=== PATIENT | female | born 1980 | race Caucasian/White ===

== ENCOUNTER → 2018-04-22 | Outpatient (CLI) | payer BC | LOC: LAB 14:08 → LAB SHORT 14:08 | DX: N39.0 Urinary tract infection, site not specified (principal); R30.0 Dysuria | CPT/HCPCS: 87086 ==

== ENCOUNTER → 2025-08-16 | Outpatient (CLI) | payer BC ==
[2025-08-19 16:09] LABS: CORTISOL,U FREE - RATIO TO CRT 14.24 ug/g CRT; CORTISOL,URN FREE - PER VOLUME 3.56 ug/L; CREATININE,URINE - PER VOLUME 25 mg/dL; HOURS COLLECTED 24 hr
== END | disposition home or self-care (01) ==
LOC: LAB 08:29 → LAB SHORT 08:29
PROVIDERS: Nurse Practitioner Family
DX: L67.8 Other hair color and hair shaft abnormalities (principal); R63.5 Abnormal weight gain
CPT/HCPCS: 81050; 82530